=== PATIENT | male | born 1995 | race Caucasian/White ===

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

== ENCOUNTER 2017-06-18 16:35 | Emergency (ER) | payer SELFPAY ==
[~2017-06-18] VITALS: Ht 180.3 cm; Wt 88.5 kg
[~2017-06-18 16:35] MED LIST changes: +AUGMENTIN 500500 M1 PO; +NAPROSYN500 MG PO
[2017-06-18 16:40] VITALS: BP 147/88
[2017-06-18] MEDS ORDERED: ZYRTEC10 MG PO (16:55)
[2017-06-18] MEDS ORDERED: MEDROL DOSEPAK4 MG PO (16:55)
[2017-06-18] MEDS ORDERED: ZITHROMAX250 MG PO (16:55)
== END 2017-06-18 17:00 | disposition home or self-care (01) ==
LOC: ED 16:35
DX: J40 Bronchitis, not specified as acute or chronic (principal); F17.200 Nicotine dependence, unspecified, uncomplicated

== ENCOUNTER → 2020-06-29 | Outpatient (CLI) | payer OTHER ==
[~2020-06-29] MED LIST changes: +MEDROL DOSEPAK4 MG PO; +ZITHROMAX250 MG PO; +ZYRTEC10 MG PO
== END | disposition home or self-care (01) ==
LOC: COVID19 13:35
PROVIDERS: ATTEND Nurse Practitioner Family
DX: Z20.822 Contact with and (suspected) exposure to COVID-19 (principal)

== ENCOUNTER → 2020-11-21 | Outpatient (CLI) | payer OTHER | END | disposition home or self-care (01) | LOC: LAB 14:04 | PROVIDERS: ATTEND Surgery | DX: Z01.812 Encounter for preprocedural laboratory examination (principal); K40.90 Unilateral inguinal hernia, without obstruction or gangrene, not specified as recurrent; Z20.822 Contact with and (suspected) exposure to COVID-19 ==

== ENCOUNTER → 2020-11-25 | Day surgery (SDC) | payer OTHER ==
[~2020-11-25] VITALS: Ht 177.8 cm; Wt 77.1 kg
[~2020-11-25] MED LIST changes: +COLACE100 MG PO; +PERCOCET 5-3251 EACH PO; +ZOFRAN4 MG PO
[2020-11-25 07:00] VITALS: BP 124/61
[2020-11-25 09:01] VITALS: BP 112/51
[2020-11-25 09:16] VITALS: BP 103/46
[2020-11-25 09:31] VITALS: BP 108/52
[2020-11-25 09:46] VITALS: BP 111/49
[2020-11-25 10:01] VITALS: BP 118/48
== END | disposition home or self-care (01) ==
LOC: SDC 11-21 14:00
PROVIDERS: ATTEND Surgery
DX: K40.90 Unilateral inguinal hernia, without obstruction or gangrene, not specified as recurrent (principal); Z88.0 Allergy status to penicillin; Z88.1 Allergy status to other antibiotic agents